=== PATIENT | male | born 1990 | race African-American/Black ===

== ENCOUNTER 2020-02-12 12:59 | Emergency (ER) | payer OTHER ==
[~2020-02-12] VITALS: Ht 180.3 cm; Wt 79.5 kg
[2020-02-12 12:59] VITALS: BP 125/71
[2020-02-12] MEDS ORDERED: PERM60CR12 TP (13:38)
--- NOTE | 2020-02-12 13:38 | PHYS DOC ---
Adult General Chief Complaint Chief Complaint: SKIN RASH/ABSCESS HPI HPI 29-year-old male presents with rash. The patient has noticed an intensely pruritic rash that comes and goes in multiple areas of his body. It is worse on his hands, feet, and lateral shoulders. He is concerned about scabies. 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 He was using hydrocortisone for the itching without relief. Patient has no known allergies. He has never had a rash like this before. He has no other complaints at this time. Review of Systems Review of Systems Constitutional: Denies fever or chills [] Eyes: Denies change in visual acuity, redness, or eye pain [] HENT: Denies nasal congestion or sore throat [] Respiratory: Denies cough or shortness of breath [] Cardiovascular: No additional information not addressed in HPI [] GI: Denies abdominal pain, nausea, vomiting, bloody stools or diarrhea [] : Denies dysuria or hematuria [] Musculoskeletal: Denies back pain or joint pain [] Integument: Rash [] Neurologic: Denies headache, focal weakness or sensory changes [] Endocrine: Denies polyuria or polydipsia [] All other systems were reviewed and found to be within normal limits, except as documented in this note. Physical Exam Physical Exam Constitutional: Well developed, well nourished, no acute distress, non-toxic appearance. [] HENT: Normocephalic, atraumatic, bilateral external ears normal, oropharynx moist, no oral exudates, nose normal. [] Eyes: PERRLA, EOMI, conjunctiva normal, no discharge. [] Neck: Normal range of motion, no tenderness, supple, no stridor. [] Cardiovascular: Heart rate regular rhythm, no murmur [] Lungs & Thorax: Bilateral breath sounds clear to auscultation [] Abdomen: Bowel sounds normal, soft, no tenderness, no masses, no pulsatile masses. [] Skin: Many erythematous papules on the patient's skin mostly the hands, feet including the webs of the toes, lateral shoulders. [] Back: No tenderness, no CVA tenderness. [] Extremities: No tenderness, no cyanosis, no clubbing, ROM intact, no edema. [] Neurologic: Alert and oriented X 3, normal motor function, normal sensory function, no focal deficits noted. [] Psychologic: Affect normal, judgement normal, mood normal. [] EKG EKG [] Radiology/Procedures Radiology/Procedures [] Course & Med Decision Making Course & Med Decision Making Pertinent Labs and Imaging studies reviewed. (See chart for details) The patient does appear to have scabies. I will treat him with permethrin. He is stable for discharge at this time. [] Dragon Disclaimer Dragon Disclaimer This electronic medical record was generated, in whole or in part, using a voice recognition dictation system. Departure Departure: Impression: Primary Impression: Scabies Disposition: HOME, SELF-CARE Condition: STABLE Referrals: PCP,NO (PCP) Patient Instructions: Permethrin skin cream, Scabies Scripts Permethrin (PERMETHRIN) 60 Gm Cream..g. 1 MARKIE TP ONCE for scabies, #60 GM 1 Refill Prov: KEVIN DÍAZ DO 02/12/20 KEVIN DÍAZ DO Feb 12, 2020 13:38
== END 2020-02-12 13:40 | disposition home or self-care (01) ==
LOC: ER 12:59
DX: B86 Scabies (principal)
CPT/HCPCS: 99282